=== PATIENT | female | born 1975 | race Hispanic/Latino ===

== ENCOUNTER 2018-06-23 06:40 | Day surgery (SDC) | payer BC ==
[~2018-06-23 06:40] MED LIST: NACL 0.9% 1000 ML 1,000 ML IV SCH; VANCOMYCIN/NS 1 GM/250 ML 1 GM/250 ML BAG IV NR
[2018-06-23 08:16] LABS: Basophils # (Auto) 0.1 K/mm3 (0.0-0.1); Basophils % (Auto) 0.6 % (0.0-1.8); Eosinophils # (Auto) 0.2 K/mm3 (0.0-0.4); Eosinophils % (Auto) 2.2 % (0.0-4.3); Hematocrit 41.8 % (30.3-42.9); Hemoglobin 13.9 gm/dl (10.1-14.3); Lymphocytes # (Auto) 1.8 K/mm3 (1.2-5.4); Mean Corpuscular HGB Conc 33 % (30-34); Mean Corpuscular Hemoglobin 29 pg (28-32); Mean Corpuscular Volume 86 fl (79-97); Monocytes # (Auto) 0.6 K/mm3 (0.0-0.8); Monocytes % (Auto) 7.7 % (0.0-7.3); Platelet Count 240 K/mm3 (140-440); Red Blood Count 4.88 M/mm3 (3.65-5.03); Red Cell Distribution Width 13.8 % (13.2-15.2)
[2018-06-23 08:27] LABS: INR 0.93 (0.87-1.13); Partial Thromboplastin Time 29.1 Sec. (24.2-36.6)
[2018-06-23 08:28] LABS: BUN/Creatinine Ratio 28; Blood Urea Nitrogen 17 mg/dL (7-17); Calcium 9.3 mg/dL (8.4-10.2); Hemolysis Index 3
[2018-06-23] MEDS ORDERED: SOLU-Medrol IV NR (08:31)
[2018-06-23] MEDS ORDERED: BENADRYL IV NR (08:31)
[2018-06-23] MEDS ORDERED: HEPARIN/NS 5000 UNIT/500ML(CATH LAB) 1,000 ML IR ONE (09:56)
[2018-06-23] MEDS ORDERED: HEPARIN 10,000 UNITS/10 ML ONE (09:56)
[2018-06-23] MEDS ORDERED: VERSED ONE (09:56)
[2018-06-23] MEDS ORDERED: SUBLIMAZE ONE (09:57)
[2018-06-23] MEDS ORDERED: NACL 0.9% 500 ML 0 ML ONE (09:57)
[2018-06-23] MEDS ORDERED: TORADOL ONE (10:48)
[2018-06-23] MEDS ORDERED: HEPARIN/NS 5000 UNIT/500ML(CATH LAB) IR ONE (10:48)
[2018-06-23] MEDS: XYLOCAINE 2% INFILTRATI ONE ×2 (11:05→11:11)
[2018-06-23 13:01] VITALS: BP 148/83
--- NOTE | 2018-06-23 13:31 | Short Stay Summary ---
Short Stay Documentation Date of service: 06/23/18 - History Principal diagnosis: venous insufficiency Social history: no significant social history - Allergies and Medications Current Medications: Allergies shellfish derived Allergy (Verified 06/23/18 09:38) Anaphylaxis iodine Adverse Reaction (Verified 06/23/18 09:38) Swelling latex Adverse Reaction (Verified 06/23/18 09:38) Rash Penicillins Adverse Reaction (Verified 06/23/18 09:38) Shortness of Breath soy Adverse Reaction (Verified 06/23/18 09:38) Swelling TREE NUTS Adverse Reaction (Uncoded 06/23/18 06:42) Swelling Home Medications Medication Instructions Recorded Confirmed Last Taken Type Escitalopram [Lexapro] 10 mg PO DAILY 06/23/18 06/23/18 06/22/18 History 10mg Fluticasone/Salmeterol [Advair 2 puff INHALATION PRN PRN 06/23/18 06/23/1806/09 History 250-50 Diskus] HCTZ 25 mg PO DAILY 06/23/18 06/23/18 06/21/18 History 25mg Levalbuterol Tartrate [Xopenex Hfa] 2 puff INHALATION PRN PRN 06/23/18 06/23/18 06/21/18 History 2 Zyrtec 10 mg PO DAILY 06/23/18 06/23/18 06/22/18 History 10mg - Physical exam General appearance: no acute distress Integumentary: no rash, no growths HEENT: PERRLA Lungs: Normal air movement Breasts: deferred Heart: Regular rate Gastrointestinal: normal Female Genitourinary: deferred Rectal Exam: deferred Extremities: no ischemia Neurological: Normal gait - Brief post op/procedure progress note Date of procedure: 06/23/18 Pre-op diagnosis: venous insufficiency Post-op diagnosis: other (pelvic congestion syndrome) Procedure: BLE intravascular ultrasound, gonadal vein CO2 angiography Anesthesia: local Surgeon: SARA OWENS Estimated blood loss: minimal Pathology: none Condition: stable - Disposition Condition at discharge: Good Disposition: DC-01 TO HOME OR SELFCARE Short Stay Discharge Plan Activity: advance as tolerated Weight Bearing Status: Weight Bear as Tolerated Diet: regular Wound: keep clean and dry, per your surgeon's advice Follow up with: JESU HENLEY MD [Primary Care Provider] - 7 Days Forms: Post Arteriogram Instruct
--- NOTE | 2018-06-23 13:38 | Operative Report ---
Operative Report Operative Report: Exam: Bilateral lower extremity intravascular venous ultrasound, left gonadal vein angiography with CO2 Clinical indication: Patient with a history of bilateral lower extremity venous hypertension as well as abdominal and pelvic distention and fullness with multiple proximal and distal varicosities Date: 06/23/2018 Procedure: Following an explanation of the risks, benefits and alternatives; written informed consent was obtained. The patient was brought to the angiographic suite and placed in supine position on the examination table. Initial ultrasound evaluation of her legs demonstrated patent femoral veins bilaterally. Her legs were prepped and draped in the usual sterile fashion. 1 % lidocaine was used for anesthesia. [place], the right femoral vein was cannulated proximally with a 7 cm 18-gauge needle. A 0.035 guidewire was advanced centrally. The needle was removed and a 5 Slovenian sheath placed. Access to the left proximal femoral vein was obtained in a similar fashion and a second 5 Slovenian sheath placed. The guidewires were advanced into the IVC and the sheaths upsized to 10 Slovenian sheaths. Secondary to the patient's contrast allergy, decision was made to proceed with intravascular ultrasound. Intravascular ultrasound was performed through the right sheath from the right atrium to the sheath insertion site including the IVC, right common iliac vein, right external iliac vein and right common femoral vein. Intravascular ultrasound was performed to the left sheath from the distal IVC, left common iliac vein, left external iliac vein and left common femoral vein. There is minimal 20-30% stenosis involving the external iliac veins bilaterally however, there is no prestenotic dilatation. A C2 cobra catheter was then advanced over a 0.0035 guidewire and used to cannulate the left renal vein. The catheter was advanced into the renal vein and angiography performed with CO2. The origin of the left gonadal vein was identified. The left gonadal vein was then cannulated using a C2 catheter and 0.035 guidewire. The C2 catheter was then removed and a 4 Slovenian vertebral catheter placed over the guidewire. Together the guidewire and catheter were advanced through the gonadal vein into the pelvis. CO2 angiography in the distal left gonadal vein demonstrates the prompt appearance of massive pelvic varicosities. The left gonadal vein and right gonadal vein are enlarged to greater than 6 mm in diameter each. There is prompt cross-filling of the gonadal veins through myometrial bridging veins. The varicose veins extend distally towards the labia. At this point, the catheters, guidewires and sheaths were removed and hemostasis achieved using manual compression. Sterile compression dressings were then applied. The patient tolerated the procedure well. There were no immediate post procedure complications. Conscious sedation was performed under the guidance of radiologic nursing. Continuous cardiopulmonary monitoring was utilized. Impression: 1) Bilateral lower extremity intravascular ultrasound performed in the IVC, right common iliac vein, right external iliac vein, right common femoral vein, left common iliac vein, left external iliac vein and left common femoral vein demonstrating 20-30% stenosis involving the iliac veins bilaterally without prestenotic dilatation to suggest this is an etiology of the patient's symptoms. 2) Selective catheterization of the left gonadal vein with CO2 venography demonstrating enlargement of both the left gonadal vein and right gonadal vein to greater than 6 mm in diameter with the appearance of to numerous to count pelvic varicosities. 3) Given the patient's lower extremity and pelvic and abdominal symptoms, the patient has pelvic congestion syndrome and will need to be treated with coil embolization of bilateral gonadal veins.
== END 2018-06-23 13:12 | disposition home or self-care (01) ==
LOC: CATHLABREC 06:40
PROVIDERS: ATTEND Radiology Diagnostic Radiology
DX: I87.2 Venous insufficiency (chronic) (peripheral) (principal); I87.303 Chronic venous hypertension (idiopathic) without complications of bilateral lower extremity; F32.9 Major depressive disorder, single episode, unspecified; F41.9 Anxiety disorder, unspecified; G47.30 Sleep apnea, unspecified; E66.9 Obesity, unspecified; Z91.040 Latex allergy status; Z68.43 Body mass index [BMI] 50.0-59.9, adult; Z91.018 Allergy to other foods; Z88.0 Allergy status to penicillin; Z91.013 Allergy to seafood; Z91.041 Radiographic dye allergy status; Z79.899 Other long term (current) drug therapy; Z90.49 Acquired absence of other specified parts of digestive tract; Z98.890 Other specified postprocedural states; Z79.01 Long term (current) use of anticoagulants
CPT/HCPCS: 36012; 36415; 37252; 37253; 76937; 80048; 85025; 85610; 85730; 96365; C1751; C1753; C1769; C1894; J1200; J2250; J2930; J3010; J3370; J7030; J1644; J1885; J7040

== ENCOUNTER 2018-07-07 06:25 | Day surgery (SDC) | payer BC ==
[2018-07-07 07:26] LABS: Basophils # (Auto) 0.1 K/mm3 (0.0-0.1); Basophils % (Auto) 0.7 % (0.0-1.8); Eosinophils # (Auto) 0.2 K/mm3 (0.0-0.4); Eosinophils % (Auto) 2.4 % (0.0-4.3); Hematocrit 41.9 % (30.3-42.9); Hemoglobin 13.9 gm/dl (10.1-14.3); Lymphocytes # (Auto) 1.8 K/mm3 (1.2-5.4); Lymphocytes % (Auto) 20.3 % (13.4-35.0); Mean Corpuscular HGB Conc 33 % (30-34); Mean Corpuscular Hemoglobin 29 pg (28-32); Mean Corpuscular Volume 86 fl (79-97); Monocytes # (Auto) 0.8 K/mm3 (0.0-0.8); Monocytes % (Auto) 8.5 % (0.0-7.3); Platelet Count 237 K/mm3 (140-440); Red Blood Count 4.86 M/mm3 (3.65-5.03); Red Cell Distribution Width 14.8 % (13.2-15.2)
[2018-07-07 07:41] LABS: BUN/Creatinine Ratio 28; Blood Urea Nitrogen 14 mg/dL (7-17); Hemolysis Index 11
[2018-07-07 07:54] LABS: INR 0.96 (0.87-1.13); Partial Thromboplastin Time 28.1 Sec. (24.2-36.6)
[2018-07-07] MEDS ORDERED: HEPARIN/NS 5000 UNIT/500ML(CATH LAB) 1,000 ML IR ONE (08:26)
[2018-07-07] MEDS ORDERED: HEPARIN 10,000 UNITS/10 ML ONE (08:26)
[2018-07-07] MEDS ORDERED: NITROGLYCERIN SYRINGE 0 ML ONE (08:27)
[2018-07-07] MEDS ORDERED: BENADRYL ONE (08:27)
[2018-07-07] MEDS ORDERED: SOLU-Medrol ONE (08:27)
[2018-07-07] MEDS ORDERED: CALAN ONE (08:27)
[2018-07-07] MEDS: SUBLIMAZE ONE ×3 (08:34→09:33)
[2018-07-07] MEDS: VERSED ONE ×3 (08:34→09:33)
[2018-07-07] MEDS: XYLOCAINE 2% INFILTRATI ONE ×2 (08:53→08:56)
[2018-07-07 14:13] VITALS: BP 123/64
--- NOTE | 2018-07-07 16:25 | Short Stay Summary ---
Short Stay Documentation Date of service: 07/07/18 - History Principal diagnosis: Pelvic congestionsyndrome H&P: obtained from office Past Medical History: other (vwenous hypertension) Past Surgical History: Other (prior venous interventions) Social history: no significant social history, lives with family - Allergies and Medications Current Medications: Allergies shellfish derived Allergy (Verified 06/23/18 09:38) Anaphylaxis iodine Adverse Reaction (Verified 06/23/18 09:38) Swelling latex Adverse Reaction (Verified 06/23/18 09:38) Rash Penicillins Adverse Reaction (Verified 06/23/18 09:38) Shortness of Breath soy Adverse Reaction (Verified 06/23/18 09:38) Swelling TREE NUTS Adverse Reaction (Uncoded 06/23/18 06:42) Swelling Home Medications Medication Instructions Recorded Confirmed Last Taken Type Escitalopram [Lexapro] 10 mg PO DAILY 06/23/18 07/07/18 07/06/18 History Fluticasone/Salmeterol [Advair 2 puff INHALATION PRN PRN 06/23/18 07/07/1807/06 History 250-50 Diskus] HCTZ 25 mg PO DAILY 06/23/18 07/07/18 07/06/18 History Levalbuterol Tartrate [Xopenex Hfa] 2 puff INHALATION PRN PRN 06/23/18 07/07/18 07/06/18 History Zyrtec 10 mg PO DAILY 06/23/18 07/07/18 07/06/18 History - Brief post op/procedure progress note Date of procedure: 07/07/18 Pre-op diagnosis: Pelvic congestion syndrome Post-op diagnosis: same Procedure: Left gonadal veiin embolization Anesthesia: local Surgeon: SARA OWENS Pathology: none Condition: stable - Disposition Condition at discharge: Good Disposition: DC-01 TO HOME OR SELFCARE Short Stay Discharge Plan Activity: advance as tolerated Weight Bearing Status: Weight Bear as Tolerated Diet: regular Wound: keep clean and dry, per your surgeon's advice Follow up with: JESU HENLEY MD [Primary Care Provider] - 7 Days Forms: Post Arteriogram Instruct
--- NOTE | 2018-07-07 16:30 | Operative Report ---
Operative Report Operative Report: Exam: Venogram with embolization of left gonadal vein Clinical indication: Pelvic congestion syndrome Date: 07/07/2018 Procedure: Following an explanation of the risks, benefits and alternatives; written informed consent was obtained. The patient was brought the angiographic suite and placed in supine position on the examination table. Initial ultrasound evaluation of her right arm demonstrated a patent right basilic vein. The patient's arm was prepped and draped in the usual sterile fashion. 1% lidocaine was used for anesthesia. Under ultrasound guidance, the right basilic vein was cannulated with a 7 cm 21- gauge needle. A 0.018 guidewire was advanced centrally. The needle was removed and a micro-sheath placed. The 0.018 guidewire was exchanged for a 0.035 guidewire and the micro-sheath exchanged for a 5 Niuean vascular sheath. A 5 Niuean MPD guide catheter was advanced over a 0.035 guidewire centrally. The guidewire and catheter were used to selectively cannulate the left renal vein. The guidewire was advanced down the left gonadal vein demonstrated on prior venography. Together the guidewire and catheter were advanced into the distal gonadal vein just proximal to the pelvic inlet. Angiography was performed at this point which demonstrated prompt opacification of to numerous to count pelvic collaterals. There is significant stasis of flow. A renegade STC microcatheter was then advanced through the guide cath more distally within the gonadal veins. The guide catheter was withdrawn proximally. Embolization was then performed using multiple [employer] interlock coils injuring from 4 mm in diameter to 6 mm in diameter at multiple places along the gonadal vein. Postembolization imaging demonstrated stasis of flow within the gonadal vein. At this point, attention was then turned to the right gonadal vein. Prior angiography head demonstrated a diminutive right gonadal vein and selective cannulation was not performed as radiation thresholds were nearing. At this point, the catheters, guidewires and she's were removed and hemostasis achieved using manual compression. A sterile dressing was then applied. The patient tolerated the procedure well. There were no immediate post procedure complications. Conscious sedation was performed under the guidance of radiologic nursing. Continuous cardiopulmonary monitoring was utilized. Impression: 1) Third order venogram in the left gonadal vein. 2) Embolization of the left gonadal vein
== END 2018-07-07 11:30 | disposition home or self-care (01) ==
LOC: CATHLABREC 06:25
PROVIDERS: ATTEND Radiology Diagnostic Radiology
DX: N94.89 Other specified conditions associated with female genital organs and menstrual cycle (principal); I10 Essential (primary) hypertension; J45.909 Unspecified asthma, uncomplicated; G47.30 Sleep apnea, unspecified; K21.9 Gastro-esophageal reflux disease without esophagitis; F32.9 Major depressive disorder, single episode, unspecified; F41.9 Anxiety disorder, unspecified; Z79.899 Other long term (current) drug therapy; Z91.040 Latex allergy status; Z91.018 Allergy to other foods; Z88.0 Allergy status to penicillin; Z91.013 Allergy to seafood; Z91.041 Radiographic dye allergy status; Z90.49 Acquired absence of other specified parts of digestive tract; Z98.890 Other specified postprocedural states
CPT/HCPCS: 36012; 36415; 37241; 80048; 85025; 85610; 85730; 99156; 99157; C1769; C1887; C1894; J1200; J1644; J2250; J2930; J3010; J7030; 76937; Q9967

== ENCOUNTER 2018-08-04 06:09 | Day surgery (SDC) | payer BC ==
[~2018-08-04 06:09] MED LIST changes: -NACL 0.9% 1000 ML 1,000 ML IV SCH
[2018-08-04 07:09] LABS: Basophils # (Auto) 0.1 K/mm3 (0.0-0.1); Basophils % (Auto) 0.7 % (0.0-1.8); Eosinophils # (Auto) 0.3 K/mm3 (0.0-0.4); Eosinophils % (Auto) 4.1 % (0.0-4.3); Hematocrit 41.5 % (30.3-42.9); Hemoglobin 14.2 gm/dl (10.1-14.3); Lymphocytes # (Auto) 1.4 K/mm3 (1.2-5.4); Lymphocytes % (Auto) 17.9 % (13.4-35.0); Mean Corpuscular HGB Conc 34 % (30-34); Mean Corpuscular Hemoglobin 29 pg (28-32); Mean Corpuscular Volume 85 fl (79-97); Monocytes # (Auto) 0.6 K/mm3 (0.0-0.8); Platelet Count 222 K/mm3 (140-440); Red Blood Count 4.91 M/mm3 (3.65-5.03); Red Cell Distribution Width 14.6 % (13.2-15.2)
[2018-08-04 07:21] LABS: INR 0.97 (0.87-1.13)
[2018-08-04 07:33] LABS: BUN/Creatinine Ratio 30; Blood Urea Nitrogen 18 mg/dL (7-17); Hemolysis Index 36
[2018-08-04] MEDS: NACL 0.9% 1000 ML 1,000 ML IV SCH ×2 (07:41→10:30)
[2018-08-04] MEDS ORDERED: HEPARIN 10,000 UNITS/10 ML ONE (10:01)
[2018-08-04] MEDS ORDERED: HEPARIN/NS 5000 UNIT/500ML(CATH LAB) 1,000 ML IR ONE (10:01)
[2018-08-04] MEDS ORDERED: BENADRYL ONE (10:22)
[2018-08-04] MEDS ORDERED: SOLU-Medrol ONE (10:22)
[2018-08-04] MEDS: SUBLIMAZE ONE ×3 (11:01→11:41)
[2018-08-04] MEDS: VERSED ONE ×2 (11:01→11:20)
[2018-08-04] MEDS: XYLOCAINE 2% INFILTRATI ONE ×2 (11:01→11:06)
[2018-08-04] MEDS ORDERED: TORADOL ONE (11:40)
--- NOTE | 2018-08-04 12:42 | Short Stay Summary ---
Short Stay Documentation Date of service: 08/04/18 - History Principal diagnosis: compression of vein H&P: obtained from office - Allergies and Medications Current Medications: Allergies shellfish derived Allergy (Verified 06/23/18 09:38) Anaphylaxis iodine Adverse Reaction (Verified 06/23/18 09:38) Swelling latex Adverse Reaction (Verified 06/23/18 09:38) Rash Penicillins Adverse Reaction (Verified 06/23/18 09:38) Shortness of Breath soy Adverse Reaction (Verified 06/23/18 09:38) Swelling TREE NUTS Adverse Reaction (Uncoded 06/23/18 06:42) Swelling Home Medications Medication Instructions Recorded Confirmed Last Taken Type Escitalopram [Lexapro] 10 mg PO DAILY 06/23/18 08/04/18 08/03/18 History Fluticasone/Salmeterol [Advair 2 puff INHALATION PRN PRN 06/23/18 08/04/1808/03 History 250-50 Diskus] HCTZ 25 mg PO DAILY 06/23/18 08/04/18 08/03/18 History Levalbuterol Tartrate [Xopenex Hfa] 2 puff INHALATION PRN PRN 06/23/18 08/04/18 1 Week Ago History ~07/28/18 Zyrtec 10 mg PO DAILY 06/23/18 08/04/18 08/03/18 History Active Medications Sodium Chloride (Nacl 0.9% 1000 Ml) 1,000 mls @ 42 mls/hr IV DIRECT J LUIS Last Admin: 08/04/18 10:30 Dose: 42 mls/hr Vancomycin HCl (Vancomycin/Ns 1 Gm/250 Ml) 1 gm in 250 mls @ 166.667 mls/hr IV PREOP NR; Protocol Stop: 08/04/18 23:59 - Brief post op/procedure progress note Date of procedure: 08/04/18 Pre-op diagnosis: compression of vein Post-op diagnosis: same Procedure: Bilateral lower extremity venogram, intravascular ultrasound, venoplasty with stent placement Anesthesia: local Surgeon: SARA OWENS Estimated blood loss: minimal Pathology: none Condition: stable - Disposition Condition at discharge: Good Disposition: DC-01 TO HOME OR SELFCARE Short Stay Discharge Plan Activity: advance as tolerated Weight Bearing Status: Weight Bear as Tolerated Diet: regular Wound: keep clean and dry, per your surgeon's advice Follow up with: JESU HENLEY MD [Primary Care Provider] - 7 Days
--- NOTE | 2018-08-04 12:47 | Operative Report ---
Operative Report Operative Report: Exam: Bilateral lower extremity venogram, intravascular ultrasound, venoplasty with stent placement, evaluation of right gonadal vein Clinical indication: Patient with a history of extrinsic compression of bilateral external iliac veins and bilateral venous hypertension Date: 08/04/2018 Procedure: Following an explanation of the risks, benefits and alternatives; written informed consent was obtained. The patient was brought to the injury graphic suite and placed in supine position on the examination table. Initial ultrasound evaluation of her legs demonstrated patent femoral veins proximally bilaterally. The patient's legs were prepped and draped in the usual sterile fashion. 1% lidocaine was used for anesthesia. Under ultrasound guidance, the right femoral vein was cannulated proximally using a 7 cm 18-gauge needle. A 0.035 guidewire was advanced centrally under fluoroscopy. The needle was removed and a 5 [place] African sheath placed. Access to the left proximal femoral vein was obtained in a similar fashion and a second 5 [place] African sheath placed. Venography performed to the sheaths demonstrate a significant compression of bilateral external iliac veins. A decision was made to evaluate further with intravascular ultrasound. The sheaths were upsized over the guidewires for 10 [place] sheaths bilaterally Intravascular ultrasound was performed through the right sheath from the IVC to the sheath insertion site. Imaged vessels include the IVC, right common iliac vein, right external iliac vein and right common femoral vein. The IVC, right common iliac vein and right common femoral vein are patent. There is proximally 50% stenosis involving the right external iliac vein with prestenotic dilatation. Intravascular ultrasound was then performed through the left sheath from the IVC to the sheath insertion site. Image vessels include the left common iliac vein, left external iliac vein and left common femoral vein. The left common iliac vein and left common femoral vein are patent. There is 60-70% stenosis involving the left external iliac vein with prestenotic dilatation. A decision was made to treat these lesions. 18 x 90 mm Wallstent was advanced through the right sheath and deployed across the lesion and the external iliac vein. An 18 x 90 mm Wallstent was advanced through the left sheath and deployed across the lesion in the left external iliac vein. The stents were seated using 16 mm balloons. Post stent deployment imaging demonstrated reduction of the stenosis to less than 10%. Evaluation of the right gonadal vein was performed using first sauce Omni catheter followed by a White 1 catheter. The origin of the right gonadal vein was identified and was 1-2 mm in diameter and decompressed. Decision was made not to further evaluate this vein secondary to the decompression The catheters, guidewires and sheaths were removed and hemostasis achieved using manual compression. A sterile compression dressing was then applied bilaterally. The patient tolerated the procedure well. There were no immediate post procedure complications. Conscious sedation was performed under the guidance of radiologic nursing. Continuous cardiopulmonary monitoring was utilized. Impression: 1) Bilateral lower extremity venogram demonstrating stenosis involving bilateral external iliac veins with intravascular ultrasound of the IVC, bilateral common iliac veins, bilateral external iliac veins and bilateral common femoral veins. Stenosis is 60-70% on the left external iliac vein and 50 % stenosis on the right external iliac vein with prestenotic dilatation bilaterally. 2) Treatment of the lesions with stents as described. 3) Evaluation of the right gonadal vein which measures 1-2 mm in diameter.
[2018-08-04] MEDS ORDERED: NORCO 5/325 PO PRN (12:51)
[2018-08-04 13:55] VITALS: BP 123/73
== END 2018-08-04 14:05 | disposition home or self-care (01) ==
LOC: CATHLABREC 06:09
PROVIDERS: ATTEND Radiology Diagnostic Radiology
DX: I87.1 Compression of vein (principal); I87.303 Chronic venous hypertension (idiopathic) without complications of bilateral lower extremity; I10 Essential (primary) hypertension; K21.9 Gastro-esophageal reflux disease without esophagitis; J45.909 Unspecified asthma, uncomplicated; G47.30 Sleep apnea, unspecified; F41.9 Anxiety disorder, unspecified; F32.9 Major depressive disorder, single episode, unspecified; Z79.01 Long term (current) use of anticoagulants; Z79.899 Other long term (current) drug therapy; Z91.041 Radiographic dye allergy status; Z91.038 Other insect allergy status; Z88.0 Allergy status to penicillin; Z91.013 Allergy to seafood; Z91.018 Allergy to other foods; Z98.890 Other specified postprocedural states; Z80.9 Family history of malignant neoplasm, unspecified
CPT/HCPCS: 36011; 36415; 37238; 37239; 37252; 37253; 75822; 76937; 80048; 85025; 85610; 85730; 99156; 99157; C1725; C1751; C1753; C1769; C1876; C1887; C1894; J1200; J1644; J1885; J2250; J2930; J3010; J7030; J3370; Q9967

== ENCOUNTER 2019-06-08 06:50 | Day surgery (SDC) | payer BC ==
[2019-06-08 07:40] LABS: Basophils # (Auto) 0.1 K/mm3 (0.0-0.1); Basophils % (Auto) 1.1 % (0.0-1.8); Eosinophils # (Auto) 0.4 K/mm3 (0.0-0.4); Eosinophils % (Auto) 4.8 % (0.0-4.3); Hematocrit 41.3 % (30.3-42.9); Hemoglobin 13.7 gm/dl (10.1-14.3); Lymphocytes # (Auto) 1.5 K/mm3 (1.2-5.4); Mean Corpuscular HGB Conc 33 % (30-34); Mean Corpuscular Volume 84 fl (79-97); Monocytes # (Auto) 0.6 K/mm3 (0.0-0.8); Monocytes % (Auto) 7.8 % (0.0-7.3); Platelet Count 258 K/mm3 (140-440); Red Cell Distribution Width 14.8 % (13.2-15.2)
[2019-06-08 07:51] LABS: INR 0.98 (0.87-1.13)
[2019-06-08 07:52] LABS: Partial Thromboplastin Time 26.1 Sec. (24.2-36.6)
[2019-06-08] MEDS ORDERED: NACL 0.9% 500 ML 500 ML IV SCH (08:00)
--- NOTE | 2019-06-08 08:05 | Anesthesia Consultation ---
Anesthesia Consult and Med Hx Date of service: 06/08/19 - Airway Anesthetic Teeth Evaluation: Good (some missing teeth) ROM Head & Neck: Adequate Mental/Hyoid Distance: Adequate Mallampati Class: Class III Intubation Access Assessment: Possibly Difficult - Pre-Operative Health Status ASA Pre-Surgery Classification: ASA3 Proposed Anesthetic Plan: MAC - Pulmonary Hx Asthma: Yes Hx Sleep Apnea: Yes (uses CPAP) - Cardiovascular System Hx Hypertension: Yes Hx Peripheral Vascular Disease: Yes (venous insufficiency of lower exteremities) - Central Nervous System Hx Psychiatric Problems: Yes (anxiety/depression) - Other Systems Hx Cancer: No Hx Obesity: Yes (Morbid obesity, BMI 56.9 )
--- NOTE | 2019-06-08 08:05 | Anesthesia Day of Surgery ---
Anesthesia Day of Surgery - Day of Surgery Patient Examined: Yes Patient H&P Reviewed: Yes Patient is NPO: Yes
[2019-06-08] MEDS ORDERED: BENADRYL IV NR (08:06)
[2019-06-08] MEDS ORDERED: DIPRIVAN 10 MG/ML IV ONE ×4 (08:12→08:13)
[2019-06-08] MEDS ORDERED: DILAUDID ONE (08:12)
[2019-06-08] MEDS ORDERED: VERSED ONE (08:12)
[2019-06-08 08:21] LABS: BUN/Creatinine Ratio 35; Blood Urea Nitrogen 21 mg/dL (7-17); Calcium 8.5 mg/dL (8.4-10.2); Hemolysis Index 3
[2019-06-08] MEDS ORDERED: HEPARIN 10,000 UNITS/10 ML ONE (08:43)
[2019-06-08] MEDS ORDERED: HEPARIN/NS 5000 UNIT/500ML(CATH LAB) 1,000 ML IR ONE (08:43)
[2019-06-08] MEDS ORDERED: XYLOCAINE 2% INFILTRATI ONE (08:44)
[2019-06-08] MEDS ORDERED: SOLU-Medrol IV NR (09:00)
[2019-06-08] MEDS ORDERED: IBUPROFEN PO ONE (12:00)
[2019-06-08 12:33] VITALS: BP 138/69
--- NOTE | 2019-06-08 13:13 | Short Stay Summary ---
Short Stay Documentation Date of service: 06/08/19 - History Principal diagnosis: Venous hypertension H&P: obtained from office - Allergies and Medications Current Medications: Allergies shellfish derived Allergy (Verified 06/23/18 09:38) Anaphylaxis iodine Adverse Reaction (Verified 06/23/18 09:38) Swelling latex Adverse Reaction (Verified 06/23/18 09:38) Rash Penicillins Adverse Reaction (Verified 06/23/18 09:38) Shortness of Breath soy Adverse Reaction (Verified 06/23/18 09:38) Swelling TREE NUTS Adverse Reaction (Uncoded 06/23/18 06:42) Swelling Home Medications Medication Instructions Recorded Confirmed Last Taken Type Fluticasone/Salmeterol (Nf) 2 puff INHALATION PRN PRN 06/23/18 06/08/19 05/25/19 History [Advair 250-50 Diskus] 1 puff HCTZ 25 mg PO DAILY 06/23/18 06/08/19 06/07/19 History 25mg Levalbuterol Tartrate [Xopenex Hfa] 2 puff INHALATION PRN PRN 06/23/18 06/08/19 05/25/19 History Zyrtec 10 mg PO DAILY 06/23/18 06/08/19 06/07/19 History 10mg Aspirin EC 81 mg PO DAILY 06/08/19 06/08/19 06/07/19 History 81mg Lactobacillus Combination No.8 1 tab PO HS 06/08/19 06/08/19 06/07/19 History [Adult Probiotic] 1 tab RX: Ibuprofen [Motrin 600 MG tab] 600 mg PO PRN PRN 06/08/19 06/08/19 06/07/19 History 600mg RX: Ibuprofen [Motrin 800 MG tab] 800 mg PO Q8HR PRN #60 tablet 06/08/19 Unknown Rx Active Medications Sodium Chloride (Nacl 0.9% 500 Ml) 500 mls @ 50 mls/hr IV DIRECT J LUIS Last Admin: 06/08/19 08:24 Dose: 50 mls/hr Documented by: - Brief post op/procedure progress note Date of procedure: 06/08/19 Pre-op diagnosis: venous hypertension secondary to venous compression Post-op diagnosis: same Procedure: Bilateral lower extremity venogram, left renal and left gonadal venogram Anesthesia: MAC Surgeon: SARA OWENS Estimated blood loss: minimal Pathology: none Condition: stable - Disposition Condition at discharge: Good Disposition: DC-01 TO HOME OR SELFCARE Short Stay Discharge Plan Activity: advance as tolerated Weight Bearing Status: Weight Bear as Tolerated Diet: regular Wound: keep clean and dry, per your surgeon's advice Follow up with: JESU HENLEY MD [Primary Care Provider] - 7 Days Forms: Post Arteriogram Instruct Prescriptions: RX: Ibuprofen [Motrin 800 MG tab] 800 mg PO Q8HR PRN #60 tablet PRN Reason: Pain , Severe (7-10)
--- NOTE | 2019-06-08 13:21 | Operative Report ---
Operative Report Operative Report: Exam: Bilateral lower extremity venogram, left renal and left gonadal venogram Clinical indication: Patient with a history of bilateral lower comment to external iliac vein stents, persistent venous hypertension of her lower extremities despite treatment of her superficial and deep venous system. Prior coil embolization of her left gonadal vein. Date: 06/08/2019 Procedure: Following an expiration of the risks, benefits and alternatives; written informed consent was obtained. The patient was brought to the angiographic suite and placed in supine position on the examination table. Initial ultrasound evaluation of her groin demonstrated patent veins bilaterally. The patient's bilateral groins were prepped and draped in the usual sterile fashion. 1% lidocaine was used for anesthesia. Under ultrasound guidance, the right proximal femoral vein was cannulated with a 7 cm 18-gauge needle.'s or 0.035 guidewire was advanced centrally. The needle was removed and a 5 Montenegrin Sheath Placed. 5 Montenegrin C2 catheter was advanced over the guidewire through the sheath and together the guidewire and catheter advanced to the level of the renal veins. The wire was removed and contrast injected through the catheter as it engaged vessels on the right. The right renal vein is well opacified. No extension into the right gonadal veins are identified. The right gonadal vein is not defined as originating from the right renal vein or IVC. Selective cannulation of the left renal vein was performed. The guidewire was advanced in the left gonadal vein and the seated catheter exchanged for a vertebral catheter. Angiography was performed to the CT catheter which demonstrated opacification of the diminutive left gonadal vein. The larger main left gonadal vein as per previously been embolized. The catheter was advanced over the guidewire to just proximal to the branch that extends from the possible left amount of pain in the pelvis. Angiography was performed. This demonstrates flow from the gonadal vein into the pelvis with drainage into the internal iliac system. No opacification of the right gonadal vein is identified. The catheter was removed over the guidewire. The catheter was exchanged for a C2 catheter in the C2 catheter used across the iliac bifurcation. The catheter was then advanced down the left common and external iliac veins. Contrast was injected which demonstrates pump opacification in the region of previously placed stents. No hemodynamically significant stenosis is identified. The stents are widely patent. The catheter was then removed over the guidewire. Venography was performed to the sheath which demonstrates a widely patent right common iliac name, external iliac vein, femoral vein. The sheath was removed and hemostasis achieved disc minute compression. A sterile compression dressing was applied. The patient tolerated the procedure well. There were no immediate post procedure competitions. Sedation was provided by anesthesia services. Continuous cardiopulmonary monitoring was utilized. Impression: Bilateral lower extremity venogram demonstrating patency of previously placed stents with no hemodynamically significant stenosis. The blood vessels including bilateral common iliac veins and the IVC appear larger than usual. Additional angiography was performed to the level of the right atrium. This demonstrates poor flow with reflux from the right atrium into the hepatic veins. 2) Attempted cannulation of right gonadal vein without success. 3) Cannulation of the left renal and left gonadal vein. Only a small branch extends from the left gonadal vein into the pelvis. The left renal vein does not appear to be extrinsicly compressed.
--- NOTE | 2019-06-08 13:42 | Vascular Lab Report ---
Limited bilateral lower extremity venous Doppler. INDICATION: Venous reflux. History of bilateral crater saphenous vein ablation. COMPARISON: None available. FINDINGS: Grayscale and duplex color Doppler sonographic evaluation was performed along the common femoral vein s and at the saphenofemoral junctions bilaterally. No right common femoral DVT is identified. The right saphenofemoral junction measures 0.86 cm in diam eter with a duration of reflux of 2883 ms. No left common femoral DVT is identified.The left saphenofemoral junction measures 0.86 cm in diamete r with a duration of reflux of 3892 ms. IMPRESSION: 1. No common femoral DVT. 2. Bilateral saphenofemoral venous reflux as above. Signer Name: Diego Rm MD Signed: 06/08/2019 1:37 PM Workstation Name: [id number]
--- NOTE | 2019-06-08 15:19 | Post Anesthesia Evaluation ---
- Post Anesthesia Evaluation Patient Participated: Yes Airway Patent: Yes Stable Respiratory Function: Yes Nausea/Vomiting: No Temp > 96.8F: Yes Pain Manageable: Yes Adequeate Hydration: Yes Anesthesia Complications: No Block Receding Appropriately: Not Applicable Patient on Ventilator: No
== END 2019-06-08 13:15 | disposition home or self-care (01) ==
LOC: CATHLABREC 06:50
PROVIDERS: ATTEND Radiology Diagnostic Radiology
DX: I87.1 Compression of vein (principal); Z91.013 Allergy to seafood; Z91.040 Latex allergy status; Z88.0 Allergy status to penicillin; Z88.8 Allergy status to other drugs, medicaments and biological substances; Z79.899 Other long term (current) drug therapy; Z79.82 Long term (current) use of aspirin; Z98.890 Other specified postprocedural states; I73.9 Peripheral vascular disease, unspecified; I10 Essential (primary) hypertension; G47.30 Sleep apnea, unspecified; E66.9 Obesity, unspecified; Z68.43 Body mass index [BMI] 50.0-59.9, adult; K21.9 Gastro-esophageal reflux disease without esophagitis; F32.9 Major depressive disorder, single episode, unspecified; F41.9 Anxiety disorder, unspecified
CPT/HCPCS: 36415; 75822; 75831; 76937; 80048; 85025; 85610; 85730; 93970; 96374; 96375; C1769; J1170; J1200; J1644; J2250; J2704; J2930; J7040; Q9967

== ENCOUNTER 2019-10-13 06:48 | Day surgery (SDC) | payer BC ==
[2019-10-13 07:34] LABS: Hemoglobin 13.7 gm/dl (10.1-14.3); Mean Corpuscular HGB Conc 34 % (30-34); Mean Corpuscular Volume 86 fl (79-97); Platelet Count 241 K/mm3 (140-440); Red Blood Count 4.78 M/mm3 (3.65-5.03); Red Cell Distribution Width 13.9 % (13.2-15.2)
[2019-10-13 07:42] LABS: BUN/Creatinine Ratio 29; Blood Urea Nitrogen 20 mg/dL (7-17); Calcium 8.7 mg/dL (8.4-10.2); Hemolysis Index 3
[2019-10-13 07:51] LABS: INR 1.03 (0.87-1.13)
[2019-10-13 07:52] LABS: Partial Thromboplastin Time 29.4 Sec. (24.2-36.6)
[2019-10-13] MEDS ORDERED: SODIUM CHLORIDE 0.9% 500 ML 500 ML IV SCH (08:00)
[2019-10-13] MEDS ORDERED: HEPARIN/NS 5000 UNIT/500ML 500 ML IR ONE ×2 (08:26→09:40)
[2019-10-13] MEDS ORDERED: fentaNYL 100 MCG/2 ML INJ ONE (08:27)
[2019-10-13] MEDS ORDERED: MIDAZOLAM 2 MG/2 ML INJ ONE (08:27)
[2019-10-13] MEDS ORDERED: LIDOCAINE (2%) 20 MG/1 ML VIAL 20 ML MDV INFILTRATI ONE (08:27)
[2019-10-13] MEDS ORDERED: diphenhydrAMINE 50 MG/ML VIAL IV ONE (09:00)
[2019-10-13] MEDS ORDERED: methylPREDNISolone Sod Succinate 125 MG/2 ML INJ IV NR (09:00)
[2019-10-13] MEDS ORDERED: IBUPROFEN 800 MG TAB PO PRN (11:00)
--- NOTE | 2019-10-13 11:30 | Short Stay Summary ---
Short Stay Documentation Date of service: 10/13/19 - History Principal diagnosis: Pelvic congestion H&P: obtained from office - Allergies and Medications Current Medications: Allergies shellfish derived Allergy (Verified 06/23/18 09:38) Anaphylaxis iodine Adverse Reaction (Verified 06/23/18 09:38) Swelling latex Adverse Reaction (Verified 06/23/18 09:38) Rash Penicillins Adverse Reaction (Verified 06/23/18 09:38) Shortness of Breath soy Adverse Reaction (Verified 06/23/18 09:38) Swelling TREE NUTS Adverse Reaction (Uncoded 06/23/18 06:42) Swelling Home Medications Medication Instructions Recorded Confirmed Last Taken Type Fluticasone/Salmeterol (Nf) 2 puff INHALATION PRN PRN 06/23/18 10/13/19 10/12/19 History [Advair 250-50 Diskus] HCTZ 12.5 mg PO DAILY 06/23/18 06/08/19 10/12/19 History Levalbuterol Tartrate [Xopenex Hfa] 2 puff INHALATION PRN PRN 06/23/18 10/13/19 05/25/19 History Zyrtec 10 mg PO DAILY 06/23/18 06/08/19 10/12/19 History Aspirin EC 81 mg PO DAILY 06/08/19 10/13/19 06/07/19 History 81 mg Lactobacillus Combination No.8 1 tab PO HS 06/08/19 10/13/19 10/12/19 History [Adult Probiotic] RX: Ibuprofen [Motrin 600 MG tab] 600 mg PO PRN PRN 06/08/19 06/08/19 06/07/19 History 600 mg RX: Ibuprofen [Motrin 800 MG tab] 800 mg PO Q8HR PRN #60 tablet 06/08/19 10/13/19 10/12/19 Rx RX: Ibuprofen [Motrin 800 MG tab] 800 mg PO Q8HR PRN #21 tablet 10/13/19 Unknown Rx Active Medications Sodium Chloride (Nacl 0.9% 500 Ml) 500 mls @ 50 mls/hr IV DIRECT J LUIS Last Admin: 10/13/19 08:14 Dose: 50 mls/hr Documented by: Ibuprofen (Ibuprofen) 800 mg PO NOW PRN PRN Reason: Pain, Mild (1-3) Stop: 10/13/19 16:00 Last Admin: 10/13/19 10:34 Dose: 800 mg Documented by: - Brief post op/procedure progress note Date of procedure: 10/13/19 Pre-op diagnosis: pelvic congestion Post-op diagnosis: same Procedure: gonadal vein embolization Anesthesia: local Surgeon: SARA OWENS Estimated blood loss: minimal Pathology: none Condition: stable - Disposition Condition at discharge: Good Disposition: DC-01 TO HOME OR SELFCARE Short Stay Discharge Plan Activity: advance as tolerated Weight Bearing Status: Weight Bear as Tolerated Diet: regular Wound: keep clean and dry, per your surgeon's advice Follow up with: SARA OWENS MD [Staff Physician] - 7 Days JESU HENLEY MD [Primary Care Provider] - 7 Days Forms: Post Arteriogram Instruct Prescriptions: RX: Ibuprofen [Motrin 800 MG tab] 800 mg PO Q8HR PRN #21 tablet PRN Reason: Pain, Moderate (4-6)
[2019-10-13 11:35] VITALS: BP 123/76
--- NOTE | 2019-10-13 11:36 | Operative Report ---
Operative Report Operative Report: Exam: Left gonadal vein embolization Clinical indication: Patient with a history of pelvic congestion was previously undergone gonadal embolization without complete relief of her symptoms approximately 1 year prior to today's examination. CT was performed which demonstrates persistent opacification of multiple pelvic varicosities and patent gonadal vein. Date: 10/13/2019 Procedure: Following an explanation of the risks, benefits and alternatives; written informed consent was obtained. The patient was brought to the angiographic suite and placed in supine position on the examination table. Initial ultrasound evaluation of her groin demonstrated a patent right common femoral vein. The patient's groin was prepped and draped in the usual sterile fashion. 1% lidocaine was used for anesthesia. Under ultrasound guidance, the right common femoral vein was cannulated with a 7 cm 18-gauge needle. A 0.035 guidewire was advanced centrally. The needle was removed and a 5 Belarusian sheath placed. A 5 Bel[place]ian Eric catheter was then advanced over the guidewire and formed in the distal IVC. The catheter was advanced to the level of the renal veins. Selective cannulation about the left and right renal vein were performed. The right renal vein is widely patent. The left renal vein is widely patent. The Erci catheter was utilized in multiple passes were made throughout the IVC in attempt to identify the origin of the right gonadal vein without success. The Eric catheter was then supervisor records change a guidewire for a White 1 catheter and additional attempts made. Ultimately, the left renal vein was again cannulated and contrast injected. This demonstrates the development of a more lateral dilated gonadal vein. A 0.035 guidewire was advanced down the gonadal vein. The White 1 catheter was exchanged for vertebral catheter which was advanced over the guidewire under fluoroscopy through the gonadal vein. With the catheter at the level of the pelvic brim, venography was performed which demonstrates prompt opacification of numerous pelvic collaterals extending across the midline through myometrial collaterals as well as bulky nearly hemostatic varicosities extending to the vagina bilaterally. The catheter was advanced to the pelvic brim and embolization performed from distal to proximal using 3 [employer] interlock coils. Initial coil was 6 mm in diameter, this was followed by a 4 mm in diameter coil which was interlaced with a 3 mm in diameter coil. Postembolization imaging demonstrated no flow passed coils and no opacification of the pelvic varicosities. The catheter was then removed over the guidewire. The sheath was removed and hemostasis achieved using manual compression. A sterile pressure dressing was applied to the right groin. The patient tolerated the procedure well. There were no immediate post procedure complications. Conscious sedation was performed in the guidance or radiologic nursing. Continuous cardiopulmonary monitoring was utilized. Impression: Left gonadal vein embolization. The left gonadal vein had developed lateral to the previously embolized gonadal vein and demonstrates filling of pelvic varicosities extending across the midline as well as extending to the vagina. Embolization was performed using coil embolization from distal to proximal with residual no flow in the gonadal vein.
== END 2019-10-13 11:20 | disposition home or self-care (01) ==
LOC: CATHLABREC 06:48
PROVIDERS: ATTEND Radiology Diagnostic Radiology
DX: I87.1 Compression of vein (principal); I73.9 Peripheral vascular disease, unspecified; I10 Essential (primary) hypertension; J45.909 Unspecified asthma, uncomplicated; G47.30 Sleep apnea, unspecified; E66.01 Morbid (severe) obesity due to excess calories; K21.9 Gastro-esophageal reflux disease without esophagitis; F32.9 Major depressive disorder, single episode, unspecified; I82.890 Acute embolism and thrombosis of other specified veins; F41.9 Anxiety disorder, unspecified; Z91.013 Allergy to seafood; Z91.041 Radiographic dye allergy status; Z91.040 Latex allergy status; Z88.0 Allergy status to penicillin; Z79.899 Other long term (current) drug therapy; Z79.82 Long term (current) use of aspirin; Z68.43 Body mass index [BMI] 50.0-59.9, adult; Z98.890 Other specified postprocedural states; Z88.8 Allergy status to other drugs, medicaments and biological substances
CPT/HCPCS: 36415; 37241; 76937; 80048; 85027; 85610; 85730; 96374; 96375; 99156; 99157; C1751; C1769; J1200; J1644; J2250; J2930; J3010; J7040; Q9967

== ENCOUNTER 2019-12-01 06:49 | Day surgery (SDC) | payer BC ==
[2019-12-01 07:48] LABS: Basophils % (Auto) 0.7 % (0.0-1.8); Eosinophils # (Auto) 0.2 K/mm3 (0.0-0.4); Eosinophils % (Auto) 3.1 % (0.0-4.3); Hemoglobin 13.6 gm/dl (10.1-14.3); Lymphocytes # (Auto) 1.3 K/mm3 (1.2-5.4); Lymphocytes % (Auto) 19.6 % (13.4-35.0); Mean Corpuscular HGB Conc 34 % (30-34); Mean Corpuscular Volume 86 fl (79-97); Monocytes # (Auto) 0.6 K/mm3 (0.0-0.8); Monocytes % (Auto) 8.6 % (0.0-7.3); Platelet Count 254 K/mm3 (140-440); Red Blood Count 4.65 M/mm3 (3.65-5.03); Red Cell Distribution Width 14.7 % (13.2-15.2)
[2019-12-01 07:55] LABS: INR 1.02 (0.87-1.13)
[2019-12-01 07:56] LABS: Partial Thromboplastin Time 29.5 Sec. (24.2-36.6)
[2019-12-01 07:57] LABS: BUN/Creatinine Ratio 32; Blood Urea Nitrogen 19 mg/dL (7-17); Calcium 8.9 mg/dL (8.4-10.2); Hemolysis Index 46
[2019-12-01] MEDS ORDERED: SODIUM CHLORIDE 0.9% 500 ML 500 ML IV SCH (08:00)
[2019-12-01] MEDS ORDERED: diphenhydrAMINE 50 MG/ML VIAL IV NR (08:39)
[2019-12-01] MEDS ORDERED: methylPREDNISolone Sod Succinate 125 MG/2 ML INJ IV NR (09:00)
[2019-12-01] MEDS ORDERED: HEPARIN 10,000 UNITS/10 ML VIAL ONE (09:28)
[2019-12-01] MEDS ORDERED: HEPARIN/NS 5000 UNIT/500ML 1,000 ML IR ONE (09:28)
[2019-12-01] MEDS ORDERED: SODIUM CHLORIDE 0.9% 500 ML 0 ML ONE (09:29)
[2019-12-01] MEDS: fentaNYL 100 MCG/2 ML INJ ONE ×2 (09:56→10:28)
[2019-12-01] MEDS: MIDAZOLAM 2 MG/2 ML INJ ONE ×2 (09:56→10:28)
[2019-12-01] MEDS: LIDOCAINE 1%/EPINEPHRINE 1:100,000 VIAL (20 ML) INFILTRATI ONE ×2 (09:59→10:07)
[2019-12-01] MEDS ORDERED: KETOROLAC 30 MG/1 ML INJ ONE (10:27)
--- NOTE | 2019-12-01 10:34 | Short Stay Summary ---
Short Stay Documentation Date of service: 12/01/19 - History Principal diagnosis: Venous hypertension BLE, venous compression Past Surgical History: Other (prior venous interventions) Social history: no significant social history, - Allergies and Medications Current Medications: Allergies shellfish derived Allergy (Verified 06/23/18 09:38) Anaphylaxis iodine Adverse Reaction (Verified 06/23/18 09:38) Swelling latex Adverse Reaction (Verified 06/23/18 09:38) Rash Penicillins Adverse Reaction (Verified 06/23/18 09:38) Shortness of Breath soy Adverse Reaction (Verified 06/23/18 09:38) Swelling TREE NUTS Adverse Reaction (Uncoded 06/23/18 06:42) Swelling Home Medications Medication Instructions Recorded Confirmed Last Taken Type Fluticasone/Salmeterol (Nf) 2 puff INHALATION PRN PRN 06/23/18 10/13/19 10/12/19 History [Advair 250-50 Diskus] HCTZ 12.5 mg PO DAILY 06/23/18 06/08/19 10/12/19 History Levalbuterol Tartrate [Xopenex Hfa] 2 puff INHALATION PRN PRN 06/23/18 10/13/19 05/25/19 History Zyrtec 10 mg PO DAILY 06/23/18 06/08/19 10/12/19 History Aspirin EC 81 mg PO DAILY 06/08/19 10/13/19 06/07/19 History 81 mg Ibuprofen [Motrin 600 MG tab] 600 mg PO PRN PRN 06/08/19 06/08/19 06/07/19 History 600 mg Ibuprofen [Motrin 800 MG tab] 800 mg PO Q8HR PRN #60 tablet 06/08/19 10/13/19 10/12/19 Rx Lactobacillus Combination No.8 1 tab PO HS 06/08/19 10/13/19 10/12/19 History [Adult Probiotic] Ibuprofen [Motrin 800 MG tab] 800 mg PO Q8HR PRN #21 tablet 10/13/19 Unknown Rx Active Medications Diphenhydramine HCl (Benadryl) 25 mg IV PRETR NR Stop: 12/01/19 12:00 Last Admin: 12/01/19 09:16 Dose: 25 mg Documented by: Sodium Chloride (Nacl 0.9% 500 Ml) 500 mls @ 50 mls/hr IV DIRECT J LUIS Last Admin: 12/01/19 08:44 Dose: 50 mls/hr Documented by: Levofloxacin/Dextrose (Levaquin 500mg/100ml) 500 mg in 100 mls @ 100 mls/hr IV PREOP NR; Protocol Stop: 12/01/19 15:00 Last Admin: 12/01/19 08:45 Dose: 100 mls/hr Documented by: Methylprednisolone Sodium Succinate (Solu-Medrol) 125 mg IV PREOP NR Stop: 12/01/19 16:00 Last Admin: 12/01/19 09:13 Dose: 125 mg Documented by: - Physical exam General appearance: no acute distress Integumentary: no rash HEENT: Atraumatic Lungs: Normal air movement Breasts: deferred Heart: Regular rate Gastrointestinal: normal Female Genitourinary: deferred Rectal Exam: deferred Extremities: no No edema Neurological: Normal gait, Normal speech - Brief post op/procedure progress note Date of procedure: 12/01/19 Pre-op diagnosis: venous compression Post-op diagnosis: same Procedure: BLE venogram and stent placement Anesthesia: local Surgeon: SARA OWENS Estimated blood loss: minimal Pathology: none Condition: stable - Disposition Condition at discharge: Good Disposition: DC-01 TO HOME OR SELFCARE Short Stay Discharge Plan Activity: advance as tolerated Weight Bearing Status: Weight Bear as Tolerated Diet: regular Wound: keep clean and dry, per your surgeon's advice Follow up with: JESU HENLEY MD [Primary Care Provider] - 7 Days
--- NOTE | 2019-12-01 10:44 | Operative Report ---
Operative Report Operative Report: Exam: Bilateral lower extremity venogram, venoplasty with stent placement Clinical indication: Patient with a history of venous hypertension, prior superficial and deep venous interventions have been only minimally successful. Patient with persistent bilateral lower extremity swelling, pain, bulging varicose veins with burning pain on her lower legs and feet with standing on her feet for long periods of time. CT demonstrates extrinsic compression of bilateral common iliac veins from the overlying arteries. Date: 12/01/2019 Procedure: Following an explanation of the risks, benefits and alternatives; written informed consent was obtained. The patient was brought to the angiographic suite placed in supine position on the examination table. Initial ultrasound evaluation of her groin demonstrated patent femoral veins proximally bilaterally. The patient's groins were prepped and draped in the usual sterile fashion. 1% lidocaine was used for anesthesia. Under ultrasound guidance the right proximal femoral vein was cannulated with a 7 cm 18-gauge needle. A 0.035 guidewire was advanced centrally. The needle was removed and a micro-sheath place. This 0.035 guidewire was exchanged for an Amplatz 0.035 guidewire and the micro-sheath exchanged for a 10 Hebrew vascular sheath. Access to the left proximal femoral vein was obtained in a similar fashion and an additional Amplatz placed on the left. An Omni flush catheter was advanced over the guidewire on the left and used to ensure true luminal positioning of the wire and the a 10 [place] arabian sheath was placed on the left. Bilateral lower extremity venogram was then performed through the sheaths. This demonstrates the patency of previously placed stents however, the angulation of the external iliac veins has resulted in stenosis at the inferior aspects of both stents. On the left, there is significant extrinsic compression from the right common iliac artery overlying the left common iliac vein with compression of the right common iliac vein from the same artery. A 16 mm x 160 mm Venovo stent was advanced for the right sheath, a 16 mm x 160 mm Venovo stent was advanced with the left sheath. Stents were deployed interesting fashion to extend from the bifurcation into the external iliac veins bilaterally. The stent on the right was long enough to be able to treat both the proximal and distal lesions however, the stent on the left was not and an additional 16 mm x 80 mm stent was deployed to cover the distal external iliac vein lesion. The stents were then seated using a 16 mm balloon insufflated to nominal atmospheres at multiple locations. Post stent placement imaging and post venoplasty imaging demonstrated reduction of the above named stenoses to less than 10%. Brisk flow is present throughout the pelvis. The patient tolerated the procedure well. There were no immediate post procedure complications. Conscious sedation was performed under the guidance of radiologic nursing. Continuous cardiopulmonary monitoring was utilized. Impression: Bilateral lower extremity venogram demonstrating significant c ompression from the overlying arteries in both the left common iliac vein and right common iliac vein. Additionally, there is stenosis involving the external iliac veins bilaterally secondary to the angulation of the veins in association with the previously placed stents. 2) Treatment of these lesions with bilateral kissing common iliac vein to external iliac vein stents with an extension on the left so that all 4 lesions were treated with residual less than 10% stenosis.
[2019-12-01] MEDS ORDERED: IBUPROFEN 800 MG TAB PO NR (12:00)
[2019-12-01 13:43] VITALS: BP 126/80
== END 2019-12-01 14:11 | disposition home or self-care (01) ==
LOC: CATHLABREC 06:49
PROVIDERS: ATTEND Radiology Diagnostic Radiology
DX: I87.1 Compression of vein (principal); I10 Essential (primary) hypertension; K21.9 Gastro-esophageal reflux disease without esophagitis; E66.9 Obesity, unspecified; F41.9 Anxiety disorder, unspecified; F32.9 Major depressive disorder, single episode, unspecified; Z91.013 Allergy to seafood; Z88.0 Allergy status to penicillin; Z91.041 Radiographic dye allergy status; Z88.8 Allergy status to other drugs, medicaments and biological substances; Z79.82 Long term (current) use of aspirin; Z79.899 Other long term (current) drug therapy; Z98.890 Other specified postprocedural states
CPT/HCPCS: 36415; 37238; 37239; 75822; 80048; 85025; 85610; 85730; 96374; 96375; C1725; C1769; C1876; C1887; C1894; J1200; J1644; J1885; J1956; J2250; J2930; J3010; J7040; 96365; Q9967

== ENCOUNTER 2022-01-23 07:08 | Day surgery (SDC) | payer BC ==
[2022-01-23] MEDS ORDERED: SODIUM CHLORIDE 0.9% 500 ML 500 ML IV SCH (08:00)
[2022-01-23] MEDS ORDERED: HEPARIN 10,000 UNITS/10 ML VIAL ONE (08:25)
[2022-01-23] MEDS ORDERED: HEPARIN/NS 5000 UNIT/500ML 1,000 ML IR ONE (08:25)
[2022-01-23 08:35] LABS: Basophils % (Auto) 0.9 % (0.0-1.8); Eosinophils # (Auto) 0.3 K/mm3 (0.0-0.4); Eosinophils % (Auto) 5.4 % (0.0-4.3); Hematocrit 41.8 % (30.3-42.9); Hemoglobin 13.6 gm/dl (10.1-14.3); Lymphocytes # (Auto) 1.4 K/mm3 (1.2-5.4); Lymphocytes % (Auto) 26.7 % (13.4-35.0); Mean Corpuscular HGB Conc 32 % (30-34); Mean Corpuscular Volume 86 fl (79-97); Monocytes # (Auto) 0.5 K/mm3 (0.0-0.8); Monocytes % (Auto) 9.9 % (0.0-7.3); Platelet Count 225 K/mm3 (140-440); Red Blood Count 4.84 M/mm3 (3.65-5.03); Red Cell Distribution Width 14.7 % (13.2-15.2)
[2022-01-23 08:48] LABS: Blood Urea Nitrogen 21 mg/dL (7-17); Calcium 8.6 mg/dL (8.4-10.2); Hemolysis Index 3
[2022-01-23 08:50] LABS: BUN/Creatinine Ratio 35
[2022-01-23 08:57] LABS: INR 1.02 (0.87-1.13)
[2022-01-23] MEDS ORDERED: FAMOTIDINE 20 MG/2 ML INJ IV ONE (08:57)
[2022-01-23 08:58] LABS: Partial Thromboplastin Time 32.5 Sec. (24.2-36.6)
[2022-01-23] MEDS ORDERED: methylPREDNISolone Sod Succinate 125 MG/2 ML INJ IV NR (09:00)
[2022-01-23] MEDS ORDERED: diphenhydrAMINE 50 MG/ML VIAL IV ONE (09:00)
[2022-01-23] MEDS: LIDOCAINE (2%) 20 MG/1 ML VIAL 20 ML MDV INFILTRATI ONE ×2 (09:02→09:47)
[2022-01-23] MEDS: fentaNYL 100 MCG/2 ML INJ ONE ×3 (09:03→10:03)
[2022-01-23] MEDS: MIDAZOLAM 2 MG/2 ML INJ ONE ×2 (09:03→09:44)
[2022-01-23] MEDS ORDERED: LIDOCAINE (2%) 20 MG/1 ML VIAL 20 ML MDV INFILTRATI ONE (09:30)
--- NOTE | 2022-01-23 10:12 | Short Stay Summary ---
Short Stay Documentation Date of service: 01/23/22 - History Principal diagnosis: Venous hypertension bilateral lower extremities H&P: obtained from office - Allergies and Medications Current Medications: Allergies shellfish derived Allergy (Verified 06/23/18 09:38) Anaphylaxis iodine Adverse Reaction (Verified 06/23/18 09:38) Swelling latex Adverse Reaction (Verified 06/23/18 09:38) Rash Penicillins Adverse Reaction (Verified 06/23/18 09:38) Shortness of Breath soy Adverse Reaction (Verified 06/23/18 09:38) Swelling TREE NUTS Adverse Reaction (Uncoded 06/23/18 06:42) Swelling Home Medications Medication Instructions Recorded Confirmed Last Taken Type Fluticasone/Salmeterol (Nf) 2 puff INHALATION PRN PRN 06/23/18 01/23/22 12/29/21 History [Advair 250-50 Diskus] 2 puffs Levalbuterol Tartrate [Xopenex Hfa] 2 puff INHALATION PRN PRN 06/23/18 01/23/22 12/24/21 History 2 puffs Zyrtec 10 mg PO DAILY 06/23/18 01/23/22 01/20/22 History 10 mg Ibuprofen [Motrin 600 MG tab] 800 mg PO PRN PRN 06/08/19 01/23/22 01/22/22 History 600 mg Lactobacillus Combination No.8 1 tab PO HS 06/08/19 01/23/22 01/22/22 History [Adult Probiotic] 1 tab Elagolix Sodium [Orilissa] 200 mg PO BID 01/23/22 01/23/22 01/22/22 History 200 mg Levocetirizine Dihydrochloride 5 mg PO DAILY 01/23/22 01/23/22 01/22/22 History [Xyzal] 5 mg Montelukast [Singulair] 10 mg PO DAILY 01/23/22 01/23/22 01/22/22 History 10 mg Active Medications Sodium Chloride (Nacl 0.9% 500 Ml) 500 mls @ 50 mls/hr IV DIRECT J LUIS Last Admin: 01/23/22 09:14 Dose: 50 mls/hr Methylprednisolone Sodium Succinate (Methylprednisolone Sod Succinate 125 Mg/2 Ml Inj) 125 mg IV PREOP NR Stop: 01/23/22 16:00 Last Admin: 01/23/22 09:11 Dose: 125 mg - Brief post op/procedure progress note Date of procedure: 01/23/22 Pre-op diagnosis: Venous hypertension, possible DVT right common iliac vein Post-op diagnosis: same Procedure: Right lower extremity venogram, venoplasty Anesthesia: local Surgeon: SARA OWENS Estimated blood loss: minimal Pathology: none Condition: stable - Disposition Condition at discharge: Good Disposition: 01 HOME / SELF CARE / HOMELESS Short Stay Discharge Plan Activity: advance as tolerated Weight Bearing Status: Weight Bear as Tolerated Diet: regular Wound: keep clean and dry, per your surgeon's advice Follow up with: JESU HENLEY MD [Primary Care Provider] - 7 Days
--- NOTE | 2022-01-23 10:17 | Operative Report ---
Operative Report Operative Report: Exam: Right lower extremity venogram, venoplasty Clinical indication: Patient with a history of extension of venous hypertension who previously is undergone evaluation and treatment of her deep venous system as well as gonadal veins. Patient recently underwent extension of her stents from her common iliac veins into the IVC secondary to stenosis at the bifurcation. Following this, the patient experienced back pain post procedurally was expected. The patient underwent surveillance ultrasounds which demonstrated what appeared to be acute thrombus in the common iliac vein on the right. Date: 01/23/2022 Procedure: Following an explanation of the risks, benefits and alternatives; written informed consent was obtained. The patient was brought to the angiographic suite and placed in supine position on the examination table. Initial ultrasound evaluation of her right groin demonstrated a right common femoral vein that was patent. The patient's right groin was prepped and draped in the usual sterile fashion. 1% lidocaine was used for anesthesia. Under ultrasound guidance, the right common femoral vein was cannulated using a 7 cm 18-gauge needle. A 0.035 guidewire was advanced centrally. The needle was removed and a 5 Malaysian sheath placed. The guidewire easily advanced into the IVC. Contrast was gently injected through the sheath which demonstrates brisk flow from the sheath insertion site into the IVC. At the level of the common iliac vein within the previously placed stents, there is a minimal amount of remodeling along the medial aspect of the stent wall. The sheath was upsized over the wire to a 7 Malaysian sheath. A 14 mm x 40 mm balloon was then advanced over the guidewire and venoplasty of the entire previously placed stents from external iliac vein to the IVC was then performed to both reduce the remodeling within the common iliac vein and smooth out the stents. The balloon was then removed. Post procedure venogram demonstrated brisk flow from the sheath insertion site to the IVC with reduction of the remodeling to less than 5%. The patient tolerated the procedure well. There were no immediate postprocedure complications. Conscious sedation was performed under the guidance of radiologic nursing. Continuous cardiopulmonary monitoring was utilized. Impression: 1) Right lower extremity venogram demonstrating remodeling within the common iliac vein. 2) Venoplasty of the remodeled portion of the vein with reduction of the stenosis to less than 5% and brisk flow from the sheath insertion site into the IVC.
[2022-01-23] MEDS ORDERED: ASPIRIN EC 325 MG TAB PO ONE (11:13)
[2022-01-23] MEDS ORDERED: IBUPROFEN 800 MG TAB PO ONE (12:00)
[2022-01-23 12:01] VITALS: BP 131/80
== END 2022-01-23 12:40 | disposition home or self-care (01) ==
LOC: CATHLABREC 07:08
PROVIDERS: ATTEND Radiology Diagnostic Radiology
DX: I87.1 Compression of vein (principal); I70.213 Atherosclerosis of native arteries of extremities with intermittent claudication, bilateral legs; J45.909 Unspecified asthma, uncomplicated; I10 Essential (primary) hypertension; G47.30 Sleep apnea, unspecified; K21.9 Gastro-esophageal reflux disease without esophagitis; E66.9 Obesity, unspecified; F41.9 Anxiety disorder, unspecified; F32.9 Major depressive disorder, single episode, unspecified; Z88.8 Allergy status to other drugs, medicaments and biological substances; Z98.890 Other specified postprocedural states; Z91.041 Radiographic dye allergy status; Z91.013 Allergy to seafood; Z88.0 Allergy status to penicillin; Z79.899 Other long term (current) drug therapy
CPT/HCPCS: 36415; 37248; 37249; 76937; 80048; 85025; 85610; 85730; 99156; 99157; C1725; C1769; C1894; J1200; J1644; J2250; J2930; J3010; J3490; J7040; 96374; 96375; Q9967